=== PATIENT | male | born 1985 ===

== ENCOUNTER 2023-12-02 06:00 | Outpatient (RCR) | payer OTHER, SELFPAY | END 2023-12-17 23:59 | disposition home or self-care (01) | LOC: SPO 06:00 | DX: M25.539 Pain in unspecified wrist (principal); M25.512 Pain in left shoulder; M25.522 Pain in left elbow; R26.89 Other abnormalities of gait and mobility; Z47.89 Encounter for other orthopedic aftercare | CPT/HCPCS: 97035; 97110; 97116; 97140; 97161; 97166; 97530 ==

== ENCOUNTER 2023-12-18 06:32 | Outpatient (RCR) | payer OTHER, BC, MEDICAID, SELFPAY | END 2024-01-16 23:59 | disposition home or self-care (01) | LOC: SPO 06:32 | DX: R26.89 Other abnormalities of gait and mobility (principal); M25.651 Stiffness of right hip, not elsewhere classified; M25.661 Stiffness of right knee, not elsewhere classified; M25.512 Pain in left shoulder; M25.522 Pain in left elbow; M25.539 Pain in unspecified wrist; Z47.89 Encounter for other orthopedic aftercare | CPT/HCPCS: 97110; 97116; 97140 ==

== ENCOUNTER 2024-01-17 06:00 | Outpatient (RCR) | payer OTHER, BC, MEDICAID, SELFPAY | END 2024-02-16 23:59 | disposition home or self-care (01) | LOC: SPO 06:00 | DX: M25.512 Pain in left shoulder (principal); M25.522 Pain in left elbow; M25.651 Stiffness of right hip, not elsewhere classified; M25.661 Stiffness of right knee, not elsewhere classified; M25.539 Pain in unspecified wrist; R26.89 Other abnormalities of gait and mobility; Z47.89 Encounter for other orthopedic aftercare | CPT/HCPCS: 97110; 97140; G0283 ==

== ENCOUNTER 2024-02-17 06:00 | Outpatient (RCR) | payer OTHER, BC, MEDICAID, SELFPAY | END 2024-03-17 23:59 | disposition home or self-care (01) | LOC: SPO 06:00 | DX: R26.89 Other abnormalities of gait and mobility (principal); M25.512 Pain in left shoulder; M25.522 Pain in left elbow; M25.661 Stiffness of right knee, not elsewhere classified; M25.651 Stiffness of right hip, not elsewhere classified; R47.89 Other speech disturbances | CPT/HCPCS: 97110; 97112; 97116; G0283 ==

== ENCOUNTER 2024-03-18 06:00 | Outpatient (RCR) | payer OTHER, BC, MEDICAID, SELFPAY | END 2024-04-17 23:59 | disposition home or self-care (01) | LOC: SPO 06:00 | DX: R26.89 Other abnormalities of gait and mobility (principal); M25.651 Stiffness of right hip, not elsewhere classified; M25.661 Stiffness of right knee, not elsewhere classified; M25.512 Pain in left shoulder; M25.522 Pain in left elbow; M25.539 Pain in unspecified wrist; Z47.89 Encounter for other orthopedic aftercare | CPT/HCPCS: 97110; 97112; 97116 ==

== ENCOUNTER 2024-04-18 06:00 | Outpatient (RCR) | payer SELFPAY | END 2024-05-18 23:59 | disposition home or self-care (01) | LOC: SPO 06:00 | DX: M25.651 Stiffness of right hip, not elsewhere classified (principal); M25.661 Stiffness of right knee, not elsewhere classified; Z47.89 Encounter for other orthopedic aftercare; R26.89 Other abnormalities of gait and mobility | CPT/HCPCS: 97110 ==